=== PATIENT | female | born 1955 | race Caucasian/White ===

== ENCOUNTER 2017-10-16 18:24 | Emergency (ER) | payer MEDICAID ==
[~2017-10-16] VITALS: Ht 162.6 cm; Wt 50.0 kg
[2017-10-16 19:19] VITALS: BP 150/100
[2017-10-16] MEDS ORDERED: SODIUM CHLORIDE FLUSH 10ML SYR IVF ONE (19:30)
[2017-10-16] MEDS ORDERED: SODIUM CHLORIDE 0.9% 1,000ML IVBOLUS ONE (19:30)
== END 2017-10-16 23:04 | disposition home or self-care (01) ==
LOC: ED 22:22
DX: F10.220 Alcohol dependence with intoxication, uncomplicated (principal)
CPT/HCPCS: 99283

== ENCOUNTER 2020-02-16 22:03 | Emergency (ER) | payer MEDICAID ==
[~2020-02-16] VITALS: Ht 160 cm; Wt 51.0 kg
--- NOTE | 2020-02-16 22:16 | NUR ---
pt to xray
--- NOTE | 2020-02-16 22:17 | NUR ---
PT RESTING ON [employer] MONITORS APPLIED, SIDERAILS UP X2, GAMALIEL LLIGHT WITHIN REACH
--- NOTE | 2020-02-16 22:28 | NUR ---
PT UP TO RR WITH STANDBY ASSIST, TOLERATED TRANSFER WITHOUT DIFFICULTY
--- NOTE | 2020-02-16 22:35 | NUR ---
urine sample taken to lab
--- NOTE | 2020-02-16 22:41 | NUR ---
pt requesting medication for back pain, erp updated and will place order
[2020-02-16 22:46] LABS: BASOPHILS # (AUTO) 0.02 x10^3/uL (0-0.1); BASOPHILS % (AUTO) 0 % (0-1); EOSINOPHILS # (AUTO) 0.07 x10^3/uL (0-0.4); EOSINOPHILS % (AUTO) 1 % (1-7); LYMPHOCYTES # (AUTO) 3.65 x10^3/uL (1-3.4); LYMPHOCYTES % (AUTO) 49 % (22-44); MD NO; MEAN CORPUSCULAR HEMOGLOBIN 34.2 pg (27.0-34.8); MEAN CORPUSCULAR HGB CONC 33.5 g/dL (32.4-35.8); MEAN PLATELET VOLUME 7.1 fL (7.4-10.4); MONOCYTES # (AUTO) 0.36 x10^3/uL (0.2-0.8); MONOCYTES % (AUTO) 5 % (2-9); NEUTROPHILS # (AUTO) 3.38 x10^3/uL (1.8-6.8); NEUTROPHILS % (AUTO) 45 % (42-75); PLATELET COUNT 343 x10^3/uL (130-400); RED CELL DISTRIBUTION WIDTH 14.2 % (9.6-15.2)
[2020-02-16 22:52] LABS: MICROSCOPIC NOT IND
[2020-02-16 22:55] LABS: ALANINE AMINOTRANSFERASE 25 U/L (12-78); ALBUMIN 3.5 g/dL (3.4-5.0); ANION GAP 2 mmol/L (5-15); CHLORIDE 114 mmol/L (98-107); CREATININE 0.76 mg/dL (0.55-1.02)
[2020-02-16 22:59] LABS: ALKALINE PHOSPHATASE 72 U/L (45-117); BILIRUBIN,TOTAL 0.3 mg/dL (0.2-1.0); TOTAL PROTEIN 7.7 g/dL (6.4-8.2)
[2020-02-16 23:03] LABS: AMPHETAMINE SCREEN, URINE Positive (Negative); BARBITURATE SCREEN, URINE Negative (Negative); BENZODIAZEPINE SCREEN, URINE Negative (Negative); CANNABINOID SCREEN, URINE Negative (Negative); COCAINE SCREEN, URINE Negative (Negative); METHADONE SCREEN, URINE Negative (Negative); OPIATE SCREEN, URINE Negative (Negative)
[2020-02-16] MEDS ORDERED: IBUPROFEN 800 MG TABLET ONE (23:16)
[2020-02-16] MEDS ORDERED: METHOCARBAMOL 750 MG TABLET ONE (23:17)
[2020-02-16 23:19] VITALS: BP 127/78
--- NOTE | 2020-02-16 23:21 | NUR ---
PT MEDICATED PER MAR
[2020-02-16] MEDS ORDERED: METHOCARBAMOL 750 MG TABLET PO ONE (23:30)
[2020-02-16] MEDS ORDERED: IBUPROFEN 800 MG TABLET PO ONE (23:30)
== END 2020-02-16 23:39 | disposition home or self-care (01) ==
LOC: ED 23:07
DX: M54.5 Low back pain (principal); F15.129 Other stimulant abuse with intoxication, unspecified; Z72.9 Problem related to lifestyle, unspecified
CPT/HCPCS: 36415; 72110; 80053; 80307; 81003; 85025; 99284